=== PATIENT | female | born 1985 | race American Indian/Alaskan Native ===

== ENCOUNTER 2018-07-16 23:40 | Emergency (ER) | payer MEDICAID ==
[2018-07-17 01:00] VITALS: BP 113/77
[2018-07-17] MEDS ORDERED: TYLENOL PO ONE (01:00)
[2018-07-17] MEDS ORDERED: TYLENOL ONE (01:00)
== END 2018-07-17 04:31 | disposition left against medical advice (07) ==
LOC: ED 23:40
DX: M25.569 Pain in unspecified knee (principal); Z53.21 Procedure and treatment not carried out due to patient leaving prior to being seen by health care provider